=== PATIENT | female | born 1985 | race Caucasian/White ===

== ENCOUNTER 2020-10-11 10:36 | Emergency (ER) | payer OTHER ==
[2020-10-11 12:10] LABS: HEMOGLOBIN 16.9 gm/dl (12.3-15.3); RED BLOOD COUNT 5.24 M/UL (4.00-5.10); WHITE BLOOD COUNT 10.1 K/UL (4.5-11.0)
[2020-10-11 12:31] LABS: CAMPYLOBACTER Not Detected (Negative); CRYPTOSPORIDIUM Not Detected (Negative); E.COLI 0157 Not Detected (Negative); ENTEROAGGREGATIVE E.COLI (EAEC Not Detected (Negative); ENTEROPATHOGENIC E.COLI (EPEC) Not Detected (Negative); ENTEROTOXIGENIC E.COLI (ETEC) Not Detected (Negative); PLESIOMONAS SHIGELLOIDES Not Detected (Negative); SALMONELLA Not Detected (Negative); SHIG/ENTEROINVAS.ECOLI (EIEC) Not Detected (Negative); SHIGA-LIK TOX.PRO.E.COLI (STEC Not Detected (Negative); VIBRIO Not Detected (Negative); VIBRIO CHOLERAE Not Detected (Negative); YERSINIA ENTEROCOLITICA Not Detected (Negative)
[2020-10-11 12:31] LABS: BUN/CREATININE RATIO 14 (0-10)
[2020-10-11 12:32] LABS: ADENOVIRUS F 40/41 Not Detected (Negative); ASTROVIRUS Not Detected (Negative); ENTAMOEBA HISTOLYTICA Not Detected (Negative); GIARDIA LAMBLIA Not Detected (Negative); ROTOVIRUS A Not Detected (Negative); SAPOVIRUS Not Detected (Negative)
[2020-10-11 14:09] LABS: CLOSTRIDIUM DIFFICILE TOX A/B DETECTED (Negative); NOROVIRUS GI/GII DETECTED (Negative)
[2020-10-11] MEDS ORDERED: VANCOCIN HCL125 MG PO (14:24)
[2020-10-11] MEDS ORDERED: ZOFRAN4 MG PO (14:26)
[2020-10-11] MEDS ORDERED: BENTYL 20MG TAB20 MG PO (14:26)
== END 2020-10-11 14:35 | disposition home or self-care (01) ==
LOC: ER1 10:36
PROVIDERS: Physician Assistant
DX: A04.72 Enterocolitis due to Clostridium difficile, not specified as recurrent (principal); A08.11 Acute gastroenteropathy due to Norwalk agent; F17.210 Nicotine dependence, cigarettes, uncomplicated
CPT/HCPCS: 80053; 83690; 85025; 87449; 87507; 96372; 99284; J2550